=== PATIENT | female | born 1980 | race Caucasian/White ===

== ENCOUNTER 2022-05-18 12:59 | Emergency (ER) | payer OTHER, SELFPAY ==
[2022-05-18 14:30] VITALS: PULSE 69; RESP 20; TEMP 37; O2SAT 99; BMI 20.4
[2022-05-18 14:52] LABS: UTC Influenza A Antigen Negative (Negative)
[2022-05-18 14:53] LABS: UTC Influenza B Antigen Negative (Negative)
--- NOTE | 2022-05-18 14:59 | EXP.UTC ---
Discharge Plan Disposition Patient Disposition: Home, Self-Care Condition: Good Prescriptions Prescriptions: New benzonatate 100 mg capsule 100 mg PO TID PRN (Reason: cough) Qty: 15 0RF prednisone 10 mg tablet 10 mg PO BID 5 Days Qty: 10 0RF azithromycin [Zithromax Z-Abhishek] 250 mg tablet See Rx Instructions .ROUTE .COMPLEX 5 Days Qty: 6 0RF Rx Instructions: For 250 mg dose pack: take 500 mg today (day 1), then 250 mg for 4 days (days 2-5) albuterol sulfate [Proventil HFA] 90 mcg/actuation HFA aerosol inhaler 1 inh inhalation Q6H PRN (Reason: shortness of breath or wheezing) Qty: 8.5 0RF No Action sertraline 25 mg tablet 25 mg PO DAILY Label Comments: TAKE 1 TABLET 1 TIME EACH DAY Referrals Follow up/Referrals: Kary Davis APRN [Primary Care Provider] - See instructions Activity Restrictions/Add. Instructions Additional Instructions/Restrictions: Start antibiotic today. Be sure to complete entire prescription even if feeling better Monitor temp. Tylenol every 4 hours as needed and / or ibuprofen every 6 hours as needed ( As long as your primary care physician has told you that it ok to take both. For fever/aches/pains ER if no less than 101 despite Tylenol or Motrin Humidifier/vaporizer or hot steamy shower Inhaler every 4-6 hours as needed like we discussed. If unsure how to use it, ask pharmacist to demonstrate how. Should help open airways and improve cough, wheezing, and shortness of breath *Tessalon Perles will not cause drowsiness but use at bedtime to help stop cough so that you may get some rest. *Start steroid today. Helps with inflammation therefore, cough and wheezing. Follow directions on the package. Reviewed side effects. Patient reports taking them before. Follow up IMMEDIATELY for new or worsening of symptoms OR no noticeable improvement over the next 48-72 hours. 911 immediately for any life threatening symptoms such as chest pain or difficulty breathing Clinical Impressions Clinical Impression: Sinusitis, Bronchitis Instructions Patient Instructions: DI for Sinusitis, Sinusitis Discharge ED [place]: [place] [facility] [place] General Stated complaint: Drainage, cough, fever, sore throat, WRAY Mode of Arrival: Ambulatory Source of Information: Patient Limitations: No Limitations Time Seen by Provider: 05/18/22 14:59 Description of Symptoms (Recalled from Triage Doc. by RN): PATIENT C/O COUGH, HEADACHE, RUNNY NOSE, AND CHEST CONGESTION SINCE YESTERDAY HEENT Symptoms (Recalled from RN notes): Yes Resp Symptoms (Recalled from RN notes): Yes Skin Symptoms (Recalled from RN notes): No MS Symptoms (Recalled from RN notes): No Functional Status (Recalled from RN notes): WNL History of Present Illness Provider Complaint: Patient states that she has been having sinus congestion and pressure for over a week but for the last couple of days she has been feeling like she is having chest congestion cough and feeling achy all over state that today she was still not feeling well so she came in to get checked out Related Data Home Medications Medication Instructions Recorded Confirmed sertraline 25 mg tablet 25 mg PO DAILY Depression 05/18/22 05/18/22 Previous Rx's Medication Instructions Recorded albuterol sulfate 90 mcg/actuation 1 inh inhalation Q6H PRN shortness 05/18/22 aerosol inhaler (Proventil HFA) of breath or wheezing #8.5 grams azithromycin 250 mg tablet See Rx Instructions PO .COMPLEX 5 05/18/22 (Zithromax Z-Abhishek) days #6 tabs benzonatate 100 mg capsule 100 mg PO TID PRN cough #15 caps 05/18/22 prednisone 10 mg tablet 10 mg PO BID 5 days #10 tabs 05/18/22 Allergies Allergy/AdvReac Type Severity Reaction Status Date / Time Penicillins Allergy Unknown Verified 05/18/22 14:50 Worker's Comp Is this a Worker's Comp case?: No PFSH PFS Medical History (Updated 05/18/22 @ 15:04
[2022-05-18 15:06] VITALS: BP 0/0; PULSE 69; RESP 20; TEMP 37; O2SAT 99
== END 2022-05-18 15:15 | disposition home or self-care (01) ==
PROVIDERS: Emergency Provider Nurse Practitioner; PCP Nurse Practitioner
DX: J40 Bronchitis, not specified as acute or chronic (principal); J32.9 Chronic sinusitis, unspecified
CPT/HCPCS: 87804; 99212; C9803; G0463; U0003; U0005

== ENCOUNTER 2022-12-22 13:05 | Emergency (ER) | payer OTHER, SELFPAY ==
[2022-12-22] VITALS (12 sets, daily range): BP systolic 63–124; BP diastolic 40–85; PULSE 63–84; RESP 17–18; TEMP 36.8; O2SAT 94–100; BMI 23.6
--- NOTE | 2022-12-22 13:52 | CT_ITS ---
FINAL REPORT TECHNIQUE: Axial images through the abdomen and pelvis were performed without contrast. This study was performed with techniques to keep radiation doses as low as reasonably achievable, (ALARA). Individualized dose reduction techniques using automated exposure control or adjustment of mA and/or kV according to the patient's size were employed. CLINICAL HISTORY: concern for L stone. LLQ painand L flank pain COMPARISON: None FINDINGS: Abdomen: A few small bullae are noted in the lower lung reed. The liver parenchyma is homogeneous. The gallbladder is present. The spleen, pancreas, adrenals and kidneys are unremarkable. Pelvis: The urinary bladder is unremarkable. The appendix is not visualied. There is a 3.8 x 3.5 left adnexal low-density present that has an appearance most compatible with an adnexal cyst of the ovary. There is mucosal edema present in the proximal sigmoid colon with pericolonic inflammatory change. No free fluid is identified in the pelvis. IMPRESSION: Mucosal edema present in the proximal sigmoid colon with pericolonic inflammatory change. The appearance is most suggestive of either an acute infectious or inflammatory process. 3.8 x 3.5 left adnexal low-density, has an appearance most compatible with an ovarian cyst, most likely physiologic. Reviewed, Interpreted and Dictated by Young Mireles MD Transcribed by Charmaine Goodwin Authenticated and [facility]
--- NOTE | 2022-12-22 14:05 | PC.NURSE ---
Bladder scan <10mL
[2022-12-22 14:26] LABS: Coronavirus 19, PCR Not Detected (NotDetected); Influenza A, PCR Not Detected (NotDetected); Influenza B, PCR Not Detected (NotDetected); Microscopic, Urine URINE MICROSCOPIC (MICROSCOPIC)
--- NOTE | 2022-12-22 14:28 | HMH.EDGENADL ---
Discharge Plan Disposition Patient Disposition: Home, Self-Care Condition: Good Chief Complaint: Urogenital-Female Prescriptions Prescriptions: No Action trazodone 50 mg tablet 50 mg PO HS Label Comments: TAKE 1 TABLET 1 TIME EACH DAY sertraline 25 mg tablet 25 mg PO DAILY Label Comments: TAKE 1 TABLET 1 TIME EACH DAY Referrals Follow up/Referrals: Kary Davis APRN [Primary Care Provider] - See instructions Activity Restrictions/Add. Instructions Additional Instructions/Restrictions: Take Tylenol 1000 mg every 6 hours (4 times daily) and ibuprofen 400 mg every 6 hours (4 times daily) as needed with food and water to prevent GI upset and kidney damage. Follow-up with your family doctor or return to the emergency department if pain continues to worsen. Clinical Impressions Clinical Impression: Enteritis Instructions Patient Instructions: DI for Urinary Tract Infection (UTI), DI for Urinary Tract Infection in Children Discharge ED Provider: Toni Cordoba General Adult HPI General Chief complaint: Urogenital-Female Stated complaint: ABD PAIN Time Seen by Provider: 12/22/22 13:11 Mode of Arrival: EMS Source of Information: Patient and EMS Limitations: No Limitations Description of Symptoms (Recalled from ER Triage Doc. by RN): 42 F presents from home via EMS for abdominal pain. Patient reports chronic abdominal issues; however, it's been 3 days since her last BM. She urinated earlier today and felt pain. Patient denies fever, chills, hematuria. 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 History of Present Illness HPI narrative: Is a 42-year-old female with history of , recovering addict presenting with abdominal pain. Patient states that she started having abdominal pain 4 days prior to arrival. Did not think anything of it, has been hurting on and off the last couple of days. Mostly when she tries to pee. Had difficulty urinating 1 day prior to arrival without dysuria, hematuria, frequency, or urgency. Had cramping, left lower quadrant pain today, acutely when she was at work and it was so bad it caused her to collapse to the ground. No loss of continence or consciousness. Patient has not had fevers, chills, but has had nausea without vomiting. No overlying skin changes. No history of pancreatitis, nephrolithiasis, obstructions, or any other intra-abdominal pathology. Still has gallbladder and appendix. Related Data Home Medications Medication Instructions Recorded Confirmed sertraline 25 mg tablet 25 mg PO DAILY Mood 12/22/22 12/22/22 trazodone 50 mg tablet 50 mg PO HS Mood 12/22/22 12/22/22 Allergies Allergy/AdvReac Type Severity Reaction Status Date / Time Penicillins Allergy Unknown Verified 05/18/22 14:50 [facility] Disclaimer: The information contained in this section may have been updated after the patient was seen, as this information can be updated by other users. Medical History (Updated 12/22/22 @ 16:07 by Toni Cordoba MD) Depression Surgical History History of section History of tubal ligation Social History Smoking Status: Former smoker alcohol intake: never current occupational status: other Travel in the last 8 weeks: None ROS Obtained: Yes All systems reviewed & no additional complaints except as documented Physical Exam General General appearance: alert and in no apparent distress Respiratory Respiratory exam: Present normal lung sounds bilaterally; Absent respiratory distress Cardiovascular Cardiovascular exam: Present regular rate and normal rhythm Abdominal Exam Abdominal exam: Present soft, tenderness and guarding; Absent distention, rebound or rigidity Abdominal tenderness: Present LLQ Back Exam Back exam: Present CVA tenderness (L) Neurological Exam Neurological exam: Present
[2022-12-22 14:40] LABS: Chloride 104 mmol/L (98-107); Sodium 139 mmol/L (136-145)
[2022-12-22 14:41] LABS: Potassium 3.7 mmoL/L (3.5-5.1)
[2022-12-22 14:42] LABS: Appearance,Urine SL CLOUDY (Clear); Blood, Urine 3+ (Negative); Color,Urine YELLOW (Yellow); Glucose,Urine (UA) Negative (Negative); Ketones,Urine 1+ (Negative); Leukocyte Esterase,Urine Negative (Negative); Nitrate,Urine Negative (Negative); Protein,Urine 2+ (Negative); Specific Gravity, Urine >= 1.030 (1.005-1.030)
[2022-12-22 14:43] LABS: Alanine Aminotransferase 21 U/L (12-78); Alkaline Phosphatase 112 U/L (38-126); Anion Gap 14.7 mEq/L (5-15); Aspartate Amino Transferase 29 U/L (14-36); Bilirubin,Total 0.8 mg/dl (0.2-1.3); Blood Urea Nitrogen 17 mg/dl (7-17); Carbon Dioxide 24 mmol/L (22.0-30.0); Creatinine Clearance Estimated 92 mL/min (50-200); Estimated Glomerular Filt Rate 91 ml/min (>60); GFR (African American) 110 ML/MIN (>60); Lactic Acid 0.8 mmol/L (0.7-2.1); Lipase 54 U/L (23-300)
[2022-12-22 14:44] LABS: Albumin Level 4.4 g/dl (3.5-5.0); Albumin/Globulin Ratio 1.1 (1.1-1.8); Calcium 9.3 mg/dl (8.4-10.2); Globulin 3.9 g/dL (1.3-3.2); Glucose 82 mg/dl (74-100); Total Protein,Serum 8.3 g/dl (6.3-8.2)
[2022-12-22 14:47] LABS: Urine Pregnancy, HCG Qual. Negative (Negative)
[2022-12-22 14:48] LABS: Bilirubin,Urine 2+ (Negative)
[2022-12-22 14:50] LABS: Basophils # 0.1 K/mm3 (0-0.2); Basophils % 0.5 % (0.1-2.0); Eosinophils # 0.2 K/mm3 (0.0-0.4); Eosinophils % 1.5 % (0.1-12.0); Hemoglobin 12.2 g/dL (12.2-16.2); Lymphocytes # 1.2 K/mm3 (0.7-4.5); Lymphocytes % 11.7 % (10-50); Mean Corpuscular HGB Conc 32.2 g/dL (31.8-35.4); Mean Corpuscular Hemoglobin 25.8 pg (27.0-31.2); Mean Corpuscular Volume 80.2 fl (81-99); Monocytes # 0.8 K/mm3 (0.1-1.0); Monocytes % 7.7 % (1.7-9.3); Neutrophils % 78.6 % (37.0-80.0); Platelet Count 384 K/mm3 (142-424); Red Blood Count 4.74 M/mm3 (4.20-5.40); Red Cell Distribution Width 14.6 % (11.5-17.5); White Blood Count 10.1 K/mm3 (4.8-10.8)
--- NOTE | 2022-12-22 14:53 | PC.NURSE ---
CHECKED ON PT NOTHING NEEDED AT THIS TIME, FAMILY AT BS
[2022-12-22 15:14] LABS: Bacteria,Urine Trace /lpf; WBC,Urine Occasional #/hpf (0-3)
== END 2022-12-22 16:22 | disposition home or self-care (01) ==
PROVIDERS: Emergency Provider Emergency Medicine; PCP Nurse Practitioner
DX: K52.9 Noninfective gastroenteritis and colitis, unspecified (principal); R10.32 Left lower quadrant pain; F32.A Depression, unspecified; Z87.891 Personal history of nicotine dependence
CPT/HCPCS: 74176; 80053; 81001; 81025; 83036; 83605; 83690; 85025; 87086; 87636; 96360; 99284; C9803; U0003; U0005

== ENCOUNTER 2025-03-30 13:53 | Observation (INO) | payer MEDICAID, SELFPAY ==
[2025-03-30] VITALS (9 sets, daily range): BP systolic 107–129; BP diastolic 68–82; PULSE 67–94; RESP 14–18; TEMP 36.6–36.9; O2SAT 91–100; BMI 33.0; BMI 24.0
[2025-03-30 14:15] LABS: Hematocrit 41.1 % (37.0-47.0); Hemoglobin 13.4 g/dL (12.2-16.2); Immature Granulocytes % 0.3 %; Mean Corpuscular HGB Conc 32.6 g/dL (31.8-35.4); Mean Corpuscular Hemoglobin 27.0 pg (27.0-31.2); Mean Corpuscular Volume 82.7 fl (81-99); Nucleated Red Blood Cells % 0 %; Platelet Count 333 K/mm3 (142-424); Red Blood Count 4.97 M/mm3 (4.20-5.40); Red Cell Distribution Width-SD 41.0 fL; White Blood Count 14.7 K/mm3 (4.8-10.8)
[2025-03-30 14:18] LABS: Microscopic, Urine URINE MICROSCOPIC (MICROSCOPIC)
[2025-03-30 14:28] LABS: Bilirubin,Urine Negative (Negative); Color,Urine YELLOW (Yellow); Glucose,Urine (UA) Negative (Negative); Ketones,Urine Negative (Negative); Leukocyte Esterase,Urine Negative (Negative); PH,Urine 5.5 (5.0-8.5); Protein,Urine Negative (Negative); Specific Gravity, Urine 1.015 (1.005-1.030); Urobilinogen,Urine 0.2 EU/dl (0.2)
[2025-03-30 14:29] LABS: Urine Pregnancy, HCG Qual. Negative (Negative)
[2025-03-30 14:34] LABS: Alanine Aminotransferase 18 U/L (12-78); Albumin Level 4.5 g/dl (3.5-5.0); Albumin/Globulin Ratio 1.3 (1.1-1.8); Alkaline Phosphatase 95 U/L (38-126); Anion Gap 13.8 mEq/L (5-15); Aspartate Amino Transferase 21 U/L (14-36); Bilirubin,Total 0.7 mg/dl (0.2-1.3); Blood Urea Nitrogen 7 mg/dl (7-17); Calcium 9.6 mg/dl (8.4-10.2); Carbon Dioxide 23 mmol/L (22.0-30.0); Chloride 104 mmol/L (98-107); Creatinine Clearance Estimated 176 mL/min (50-200); Creatinine,Serum 0.50 mg/dl (0.52-1.04); Estimated Glomerular Filt Rate 133 ml/min (>60); GFR (African American) 161 ML/MIN (>60); Globulin 3.6 g/dL (1.3-3.2); Glucose 100 mg/dl (74-100); Lipase 46 U/L (23-300); Potassium 3.8 mmoL/L (3.5-5.1); Sodium 137 mmol/L (136-145); Total Protein,Serum 8.1 g/dl (6.3-8.2)
[2025-03-30 14:39] LABS: RBC Morphology Normal; Total Cells Counted 100
[2025-03-30 14:43] LABS: Bacteria,Urine 1+ /lpf
--- NOTE | 2025-03-30 15:07 | ED_ITS ---
Discharge Plan Disposition Chief Complaint: Abdominal Pain Prescriptions Prescriptions: No Action trazodone 50 mg tablet 50 mg PO HS Patient Comments: TAKE 1 TABLET 1 TIME EACH DAY sertraline 25 mg tablet 25 mg PO DAILY Patient Comments: TAKE 1 TABLET 1 TIME EACH DAY Referrals Follow up/Referrals: aKry Davis APRN [Primary Care Provider, Medical] - See instructions Instructions Patient Instructions: DI for Acute Abdominal Pain Print Language Print Language: Romanian Discharge ED Provider: Lobo Miramontes General Adult HPI General Chief complaint: Abdominal Pain Stated complaint: lower abd pain, lower back pain Time Seen by Provider: 03/30/25 15:07 Mode of Arrival: Wheelchair Source of Information: Patient Description of Symptoms (Recalled from ER Triage Doc. by RN): pt presents to ED c/o lower abdominal pain that started yesterday evening. pt states pain is throughout entire lower abdomen and radiates to low back. denies burning with urination. pt reports she believes she is currently going through menopause. pt reports 1 episode of vomiting today and diarrhea yesterday. History of Present Illness HPI narrative: Ratna Metzger with a history of , tubal ligation who presents to the emergency department for complaints of abdominal pain, nausea, vomiting and diarrhea. Additionally, she nonbloody diarrhea as well as nonbloody. She has not been able to keep any food or liquid down. She states that today, she is having lower abdominal pain associate with it. She denies any dysuria, hematuria. She states the pain radiates to both sides of her lower back. She denies any fevers. They note that her daughter had similar illness recently and was seen in the emergency department that time and told she had a stomach virus. She denies any chest pain or shortness of breath Related Data Home Medications ?Medication ?Instructions ?Recorded ?Confirmed sertraline 25 mg tablet 25 mg PO DAILY Mood 12/22/22 12/22/22 trazodone 50 mg tablet 50 mg PO HS Mood 12/22/22 Allergies Allergy/AdvReac Type Severity Reaction Status Date / Time Penicillins Allergy Unknown Verified 05/18/22 14:50 [facility] Disclaimer: The information contained in this section may have been updated after the patient was seen, as this information can be updated by other users. Medical History (Updated 12/22/22 @ 16:07 by Toni Cordoba MD) Depression Surgical History History of section History of tubal ligation Social History Smoking Status: Former smoker alcohol intake: never current occupational status: other Travel in the last 8 weeks?: None Have you lived/traveled outside [place] in past 30 days?: No Contact w/someone who lives/traveled outside US past 30 days?: No Exposure to someone with infectious disease in past 14 days?: No Do you have a fever (greater than 100.4 F or 38 C)?: No Have you tested positive for COVID-19?: No Exposed to someone with COVID-19 in past 14 days?: No Do you have a sore throat?: No Do you have a cough?: No Do you have any weakness?: No Do you have any diarrhea?: No Are you experiencing any unusual bleeding?: No Do you have any muscle aches/pain?: No Do you have any abdominal pain?: No Are you experiencing loss of taste or smell?: No ROS Obtained: Yes Systems reviewed as appropriate & no additional complaints except as documented Physical Exam General General appearance: alert and in no apparent distress Head Head exam: atraumatic Eye Eye exam: Present normal appearance ENT ENT exam: Present normal external ear exam Neck Neck exam: Present full ROM Chest Chest inspection: Present symmetric chest wall rise Respiratory Respiratory exam: Present normal lung sounds bilaterally; Absent respiratory distress, wheezes or stridor Cardiovascular Cardiovascular exam: Present regular rate and normal rhythm Abdominal Exam Abdominal exam: Present soft, tenderness (Diffuse with guarding but no peritonitis), guarding, obturator sign and tenderness at McBurney's Point; Absent distention, rigidity or heel tap sign Extremities Exam Extremities exam: Present normal inspection Back Exam Back exam: Present normal inspection Neurological Exam Neurological exam: Present alert and oriented X3 Psychiatric Psychiatric exam: Present normal affect Skin Skin exam: Present warm and dry Medical Decision Making Medical Records Screening: Per USPSTF and CDC recommendations, given the prevalence of disease in our region, it is our hospital?s policy to screen for HIV and viral Hepatitis for all patients aged 18 and over and those with ongoing risk factors. Santy Inquiry Pt receiving controlled substance: No Vital Signs: 03/30/25 14:00 Temperature 98.4 F Temperature Source Oral Pulse Rate [Right Radial] 94 H Respiratory Rate 18 Blood Pressure [Right Arm] 123/82 Blood Pressure Mean [Right Arm] 95 Blood Pressure Source [Right Arm] Automatic Cuff Blood Pressure Position [Right Arm] Sitting 02 Sat by Pulse Oximetry 100 Oxygen Delivery Method Room Air Lab Data Lab Results 03/30/25 14:06: WBC 14.7 H, RBC 4.97, Hgb 13.4, Hct 41.1, MCV 82.7, MCH 27.0, MCHC 32.6, RDW 13.7, Plt Count 333, MPV 9.5, Neut % (Auto) 76.6, Lymph % (Auto) 11.8, [place] % (Auto) 10.5 H, Eos % (Auto) 0.5, Baso % (Auto) 0.3, Neut # (Auto) 11.3 H, Lymph # (Auto) 1.7, [place] # (Auto) 1.6 H, Eos # (Auto) 0.1, Baso # (Auto) 0.1, Total Counted 100, Neutrophils % (Manual) 70, Band Neutrophils % 1.0, Lymphocytes % (Manual) 20, Monocytes % (Manual) 9, Platelet Estimate Normal, RBC Morphology Normal, Sodium 137, Potassium 3.8, Chloride 104, Carbon Dioxide 23, Anion Gap 13.8, BUN 7, Creatinine 0.50 L, Estimated Creat Clear 176, Estimated GFR 133, Est GFR ( Amer) 161, Glucose 100, Calcium 9.6, Total Bilirubin 0.7, AST 21, ALT 18, Alkaline Phosphatase 95, C-Reactive Protein 77.7 H, Total Protein 8.1, Albumin 4.5, Globulin 3.6 H, Albumin/Globulin Ratio 1.3, Lipase 46 03/30/25 14:14: Urine Color Yellow, Urine Appearance Clear, Urine pH 5.5, Ur Specific [place] 1.015, Urine Protein Negative, Urine Glucose (UA) Negative, Urine Ketones Negative, Urine Blood 3+ A, Urine Nitrate Negative, Urine Bilirubin Negative, Urine Urobilinogen 0.2, Ur Leukocyte Esterase Negative, Urine RBC 3-5, Urine WBC None, Ur Squamous Epith Cells 3-5, Urine Bacteria 1+, Urine HCG, Qual Negative 03/30/25 14:06 03/30/25 14:06 Orders (Tests/Meds): ED MEDICATIONS Generic Name Dose Route Start Last Admin Trade Name Freq PRN Reason Stop Dose Admin Piperacillin Sod/Tazobactam 100 mls @ 200 mls/hr 03/30/25 17:15 Sod 4.5 gm/ Sodium Chloride IV 04/09/25 17:14 Q12H CYN Discontinued Medications Generic Name Dose Route Start Last Admin Trade Name Freq PRN Reason Stop Dose Admin Lactated Ringer's 1,000 mls @ 999 mls/hr 03/30/25 15:12 03/30/25 15:24 Lactated Ringer's 1000 Ml Bag IV 03/30/25 16:12 999 mls/hr .Q1H1M ONE Administration Iopamidol 75 ml 03/30/25 15:43 03/30/25 15:45 Iopamidol-370 (76%);100ml Bottle IV 03/30/25 15:44 75 ml ONCE ONE Administration Ketorolac Tromethamine 15 mg 03/30/25 15:12 03/30/25 15:23 Ketorolac 15mg/Ml Vial IV 03/30/25 15:13 15 mg ONCE ONE Administration Morphine Sulfate 2 mg 03/30/25 17:11 Morphine 2mg/Ml Syringe IV 03/30/25 17:12 ONCE ONE Ondansetron HCl 4 mg 03/30/25 15:12 03/30/25 15:23 Ondansetron 4mg/2ml Vial IV 03/30/25 15:13 4 mg ONCE ONE Administration Sodium Chloride 10 ml 03/30/25 15:43 03/30/25 15:45 Sodium Chloride 0.9% 10ml Syr (Rad Only) IV 03/30/25 15:44 10 ml ONCE ONE Administration ORDERS Category Date Time Status CT abdomen pelvis w con Stat Cat Scan 03/30/25 15:12 Completed CRP [C-Reactive Protein] Stat Lab 03/30/25 14:06 Completed Complete Blood Count Auto Diff Stat Lab 03/30/25 14:06 Completed Comprehensive Metabolic Panel Stat Lab 03/30/25 14:06 Completed Lipase Stat Lab 03/30/25 14:06 Completed Urinalysis and Microscopic Stat Lab 03/30/25 14:14 Completed Urine , HCG Qual. Stat Lab 03/30/25 14:14 Completed Medical Decision Narrative: Ratna Metzger with a history of , tubal ligation who presents to the emergency department for complaints of abdominal pain, nausea, vomiting and diarrhea. Additionally, she nonbloody diarrhea as well as nonbloody. She has not been able to keep any food or liquid down. She states that today, she is having lower abdominal pain associate with it. She denies any dysuria, hematuria. She states the pain radiates to both sides of her lower back. She denies any fevers. They note that her daughter had similar illness recently and was seen in the emergency department that time and told she had a stomach virus. On arrival, patient is hemodynamically styable with BP 123/82, not tachycardic, breathing comfortably on room air, afebrile, maintaining appropriate oxygen saturation on rooma air. Physical exam, stated above, revealed an overall well- appearing female status. She is diffusely tender. Abdomen nondistended and not peritonitic. Positive obturator sign. Tenderness at McBurney point negative heeltap. Differential diagnosis includes, but is not limited to: Acute appendicitis, acute cholecystitis, gastroenteritis, peptic ulcer disease, diverticulitis, UTI, among others. The most morbid conditions were considered and workup was based on these. Workup in the emergency department included: CBC with differential, CMP, urine test, urinalysis, CRP, CT abdomen pelvis with IV contrast. Patient was treated with 15 mg of IV Toradol, 1 L lactated ringer, 4 mg of IV Zofran. Workup showed leukocytosis with WBC 14.7 without neutrophilia, electrtolytes within normal limits, no JORDAN, liver enzymes and builirubin within normal limits. Lipase normal at 46. UA with 3+ blood on dipstick but only 3-5 RBC on micro, which was present in 2022 as well. No evidence of urinary tract infection. CRP is elevated at 77. Patient does note that she had gone a couple years without a period but had vaginal bleeding a few months ago. She has not had any vaginal bleeding recently. CT imaging was interpreted by me personally and significant for diverticulitis. Per radiology, there is a small amount of free fluid within the pelvis, however no identifiable cause as mentioned. No abscess or perforation is mentioned. I do not see evidence of perforation or abscess on my interpretation. Given these findings, I reassessed the patient, she overall feels better but still has tenderness in her lower abdomen. Given extensive diverticulitis in setting of small amount of free fluid with continued pain, I do feel patient would benefit from admission for IV antibiotics as well as serial abdominal exams and surgical consultation if indicated. Will start patient on IV Zosyn at this time and patient denies ever having a reaction to penicillins in the past. I discussed patient's case with Dr. Reyna Critical Care Critical Care Time Critical Care Time: No
--- NOTE | 2025-03-30 15:12 | CT_ITS ---
FINAL REPORT TECHNIQUE: After the administration of oral and intravenous contrast, axial images were obtained through the abdomen and pelvis by computed tomography. The study was performed with techniques to keep radiation dose as low as reasonably achievable, (ALARA). Individual dose reduction techniques using automated exposure control or adjustment of mA and/or kV according to the patient's size were employed. CLINICAL HISTORY: lower abdominal pain, N/V/D COMPARISON: 12/22/2022 FINDINGS: Abdomen: There are chronic changes in the lung bases. The liver parenchyma is homogeneous. The gallbladder is present. The spleen, pancreas, adrenals and kidneys appear unremarkable. The aorta is normal in caliber. There is no free fluid or adenopathy. Pelvis: The appendix is unremarkable. There is extensive mucosal thickening throughout the mid sigmoid colon. Extensive pericolonic inflammatory reaction is seen. There is a small amount of free fluid in the pelvis which is new since the previous exam with a mean attenuation value of 14 Hounsfield units. The urinary bladder is unremarkable. Cyst in the left ovary is again identified but smaller than previous now measuring 2.5 cm in diameter. IMPRESSION: Extensive changes of acute diverticulitis with new pelvic free fluid. Reviewed, Interpreted and Dictated by Young Mireles MD Transcribed by Sammie Wu Authenticated and [facility]
[2025-03-30] MEDS: ONDANSETRON 4MG/2ML VIAL 4 MG IV (15:23)
[2025-03-30] MEDS: KETOROLAC 15MG/ML VIAL 15 MG IV (15:23)
[2025-03-30] MEDS: LACTATED RINGERS 1000ML 1,000 ML 999 ML IV (15:24)
[2025-03-30] MEDS: IOPAMIDOL-370 (76%);100ML BOTTLE 75 ML IV (15:45)
[2025-03-30] MEDS: SODIUM CHLORIDE 0.9% 10ML SYR (RAD ONLY) 10 ML IV (15:45)
[2025-03-30 16:03] LABS: C-Reactive Protein 77.7 mg/L (0-4)
--- NOTE | 2025-03-30 17:56 | PC.NURSE ---
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
--- NOTE | 2025-03-30 18:20 | EXP.HP ---
History of Present Illness *Admission Date: 03/30/25 *Reason for visit:: Abdominal pain *History of present illness: Wayne Metzger is a 44-year-old female with a medical history significant for chronic tobacco smoker presents with progressive abdominal pain. Patient states her abdominal pain began yesterday afternoon and a lower abdomen and wrapped around bilaterally and into her back. This was preceded by a day of diarrhea, but no diarrhea since. She states abdominal pain kept her up all night, and worsened this morning after which her significant other urged her to come to the ER. She denies fever/chills, pain with eating, chest pain, shortness of breath, upper abdominal pain. Denies recent changes in diet or medications. Denies history of constipation. Has not had a colonoscopy. Workup in the ED significant for WBC 14.7, CRP 77.7, CT abdomen/pelvis showing extensive acute diverticulitis throughout mid sigmoid colon, extensive pericolonic inflammatory reaction and some free fluid in the pelvis. No signs of gross perforation or abscess or peritoneal signs. Vital signs stable. Patient was given Toradol 15 mg, 1 L LR, IV morphine 2 mg, and started on IV Zosyn. Patient stated she felt better, but given extensive nature of diverticulitis and pelvic free fluid, ED provider discussed case with me and I decided to admit patient for acute diverticulitis. [facility] Disclaimer: The information contained in this section may have been updated after the patient was seen, as this information can be updated by other users. Medical History (Updated 03/30/25 @ 23:34 by David Reyna MD) Depression Surgical History History of section History of tubal ligation Family History (Updated 03/30/25 @ 19:43 by Brianna Walters RN) Other Diabetes Social History (Updated 03/30/25 @ 19:44 by Brianna Walters RN) Smoking Status: Current every day smoker alcohol intake: never current occupational status: unemployed and other Travel in the last 8 weeks?: Inside the [place] Have you lived/traveled outside US in past 30 days?: No Contact w/someone who lives/traveled outside US past 30 days?: No Exposure to someone with infectious disease in past 14 days?: No Do you have a fever (greater than 100.4 F or 38 C)?: No Have you tested positive for COVID-19?: No Exposed to someone with COVID-19 in past 14 days?: No Do you have a sore throat?: No Do you have a cough?: No Do you have any weakness?: No Do you have any diarrhea?: No Are you experiencing any unusual bleeding?: No Do you have any muscle aches/pain?: No Do you have any abdominal pain?: No Are you experiencing loss of taste or smell?: No Meds Home Medications and Allergies New Prescriptions to Start Prescriptions: Allergies Allergy/AdvReac Type Severity Reaction Status Date / Time No Known Allergies Allergy Verified 03/30/25 20:41 Exam Data for Last 24 hours Vital signs and Labs for Last 24 Hours: Temp Pulse Resp BP Pulse Ox O2 Del Method 98.4 F 94 H 18 123/82 100 Room Air 03/30/25 14:00 03/30/25 14:00 03/30/25 14:00 03/30/25 14:00 03/30/25 14:00 03/30/25 14:00 Laboratory Results - last 24 hr 03/30/25 14:06: WBC 14.7 H, RBC 4.97, Hgb 13.4, Hct 41.1, MCV 82.7, MCH 27.0, MCHC 32.6, RDW 13.7, Plt Count 333, MPV 9.5, Neut % (Auto) 76.6, Lymph % (Auto) 11.8, [place] % (Auto) 10.5 H, Eos % (Auto) 0.5, Baso % (Auto) 0.3, Neut # (Auto) 11.3 H, Lymph # (Auto) 1.7, [place] # (Auto) 1.6 H, Eos # (Auto) 0.1, Baso # (Auto) 0.1, Total Counted 100, Neutrophils % (Manual) 70, Band Neutrophils % 1.0, Lymphocytes % (Manual) 20, Monocytes % (Manual) 9, Platelet Estimate Normal, RBC Morphology Normal, Sodium 137, Potassium 3.8, Chloride 104, Carbon Dioxide 23, Anion Gap 13.8, BUN 7, Creatinine 0.50 L, Estimated Creat Clear 176, Estimated GFR 133, Est GFR ( Amer) 161, Glucose 100, Calcium 9.6, Total Bilirubin 0.7, AST 21, ALT 18, Alkaline Phosphatase 95, C-Reactive Protein 77.7 H, Total Protein 8.1, Albumin 4.5, Globulin 3.6 H, Albumin/Globulin Ratio 1.3, Lipase 46 03/30/25 14:14: Urine Color Yellow, Urine Appearance Clear, Urine pH 5.5, Ur Specific [place] 1.015, Urine Protein Negative, Urine Glucose (UA) Negative, Urine Ketones Negative, Urine Blood 3+ A, Urine Nitrate Negative, Urine Bilirubin Negative, Urine Urobilinogen 0.2, Ur Leukocyte Esterase Negative, Urine RBC 3-5, Urine WBC None, Ur Squamous Epith Cells 3-5, Urine Bacteria 1+, Urine HCG, Qual Negative I & O for Last 24 hours: Intake & Output 03/27/25 03/28/25 03/29/25 03/30/25 23:59 23:59 23:59 23:59 Weight 79.379 kg Constitutional Constitutional: no acute distress *Routine HEENT Exam Head: Present normocephalic Eye: Present EOMI and PERRL ENT: Present mucous membranes moist *Routine Neck Exam Neck: Present supple; Absent lymphadenopathy *Routine Respiratory Exam Respiratory: Present CTA bilaterally *Routine Cardiovascular Exam Cardiovascular: Present RRR *Routine Abdominal Exam Abdominal: Present soft, normoactive bowel sounds and tenderness Comments: Mild tenderness to palpation in the lower abdomen. No peritoneal signs. *Routine Rectal Exam Rectal:: deferred *Routine Genitalia Exam Genitalia:: deferred *Routine Extremities Exam Extremities: Absent cyanosis, clubbing or edema *Routine Skin Exam Skin: Present warm; Absent rash *Routine Neurological Exam Neurological: Present alert and oriented X3 Assessment and Plan *Assessment and plan (1) Diverticulitis: Status: Acute Category: Medical Code(s): K57.92 - Diverticulitis of intestine, part unspecified, without perforation or abscess without bleeding (2) Tobacco smoker within last 12 months: Status: Acute Category: Social Hx Code(s): F17.200 - Nicotine dependence, unspecified, uncomplicated (3) Hematuria: Status: Acute Category: Medical Code(s): R31.9 - Hematuria, unspecified Plan Wayne Metzger is a 44-year-old female with a medical history significant for chronic tobacco smoker presents with progressive abdominal pain. Patient states her abdominal pain began yesterday afternoon and a lower abdomen and wrapped around bilaterally and into her back. This was preceded by a day of diarrhea, but no diarrhea since. She states abdominal pain kept her up all night, and worsened this morning after which her significant other urged her to come to the ER. She denies fever/chills, pain with eating, chest pain, shortness of breath, upper abdominal pain. Denies recent changes in diet or medications. Denies history of constipation. Has not had a colonoscopy. Workup in the ED significant for WBC 14.7, CRP 77.7, CT abdomen/pelvis showing extensive acute diverticulitis throughout mid sigmoid colon, extensive pericolonic inflammatory reaction and some free fluid in the pelvis. No signs of gross perforation or abscess or peritoneal signs. Vital signs stable. Patient was given Toradol 15 mg, 1 L LR, IV morphine 2 mg, and started on IV Zosyn. Patient stated she felt better, but given extensive nature of diverticulitis and pelvic free fluid, ED provider discussed case with me and I decided to admit patient for acute diverticulitis. #Acute sigmoid diverticulitis ? Presented with progressive lower abdominal pain and into her back, proceeded with 1 day of diarrhea which has resolved. ? CT abdomen/pelvis 03/30/2025 showed extensive sigmoid diverticulitis with some free fluid, therefore patient was admitted for close monitoring. ? Initial WBC 14.7 and CRP 77.7, no signs of sepsis. ? Continue IV Zosyn 3.375 g every 6 hours. Renally dose when appropriate. ? GI consulted given extensive nature of diverticulitis, pending further recommendations. Would benefit from colonoscopy in 6 weeks. ? Follow-up morning CBC, CRP. ? [place], morphine as needed for pain control. Avoid NSAIDs due to risk of perforation. ? Avoid carbonated drinks. #Chronic tobacco smoker ? Nicotine patch daily. #Hematuria ? UA shows 3+ blood, with RBCs. No WBCs, low suspicion for UTI. Patient is a chronic smoker, recommend referral to urology for further evaluation. Full code DVT prophylaxis: SCDs
--- NOTE | 2025-03-30 18:36 | PC.NURSE ---
Report given to CHRIST Sharma
[2025-03-30] MEDS: MORPHINE 2MG/ML SYRINGE 2 MG IV (18:38)
[2025-03-30] MEDS: PIPERACILLIN/TAZO 4.5 GM in 0.9 % SODIUM CHLORIDE 100 ML IV (18:40)
--- NOTE | 2025-03-30 18:57 | PC.NURSE ---
arrived by WC from ER
[2025-03-30] MEDS: NICOTINE 21MG/24HR PATCH 21 MG TD (21:39)
--- NOTE | 2025-03-30 22:12 | PC.NURSE ---
pt had desyel and zoloft on home medication List. Pt stated she had not taken in 2 years or longer. FRITZ ANDREA RN
[2025-03-31] VITALS: BP 142/77; PULSE 88; RESP 16; TEMP 37.1; O2SAT 90
[2025-03-31] MEDS: MORPHINE 4MG/ML SYRINGE 4 MG IV (00:44)
[2025-03-31] MEDS: PIPERCILLIN/TAZO 3.375 GM in 0.9 % SODIUM CHLORIDE 50 ML IV ×2 (01:11→06:09)
[2025-03-31 04:00] VITALS: BP 116/63; PULSE 87; RESP 16; TEMP 36.9; O2SAT 100; BMI 25.7
[2025-03-31 06:21] LABS: Hematocrit 36.9 % (37.0-47.0); Immature Granulocytes % 0.2 %; Mean Corpuscular HGB Conc 31.4 g/dL (31.8-35.4); Mean Corpuscular Hemoglobin 26.4 pg (27.0-31.2); Mean Corpuscular Volume 83.9 fl (81-99); Nucleated Red Blood Cells % 0 %; Platelet Count 295 K/mm3 (142-424); Red Blood Count 4.40 M/mm3 (4.20-5.40); Red Cell Distribution Width-SD 42.7 fL; White Blood Count 12.6 K/mm3 (4.8-10.8)
[2025-03-31 06:30] LABS: Alanine Aminotransferase 13 U/L (12-78); Albumin Level 3.7 g/dl (3.5-5.0); Albumin/Globulin Ratio 1.4 (1.1-1.8); Alkaline Phosphatase 75 U/L (38-126); Anion Gap 10.2 mEq/L (5-15); Aspartate Amino Transferase 18 U/L (14-36); Bilirubin,Total 0.7 mg/dl (0.2-1.3); Blood Urea Nitrogen 7 mg/dl (7-17); Calcium 8.6 mg/dl (8.4-10.2); Carbon Dioxide 26 mmol/L (22.0-30.0); Chloride 105 mmol/L (98-107); Creatinine Clearance Estimated 114 mL/min (50-200); Creatinine,Serum 0.60 mg/dl (0.52-1.04); Estimated Glomerular Filt Rate 108 ml/min (>60); GFR (African American) 130 ML/MIN (>60); Globulin 2.7 g/dL (1.3-3.2); Glucose 97 mg/dl (74-100); Magnesium 2.0 mg/dl (1.6-2.3); Potassium 4.2 mmoL/L (3.5-5.1); Sodium 137 mmol/L (136-145); Total Protein,Serum 6.4 g/dl (6.3-8.2)
[2025-03-31 06:34] LABS: Hemoglobin 11.5 g/dL (12.2-16.2)
[2025-03-31 06:37] LABS: C-Reactive Protein 113.1 mg/L (0-4)
[2025-03-31 08:00] VITALS: BP 98/52; PULSE 83; RESP 16; TEMP 36.9; O2SAT 95
--- NOTE | 2025-03-31 08:10 | EXP.GE.CONS ---
History of Present Illness *Admission Date: 03/30/25 *History of present illness: Mrs. Metzger is a 44-year-old female who was admitted with acute diverticulitis yesterday. The patient presented with lower abdominal pain that began 2 days ago and wrapped around into her back. This was preceded by some diarrhea. This did keep her up all night and she presented to the ED. She reports no fever, bloating or gassiness. She reports no hematochezia or bright red blood per rectum. Her workup in the ED showed leukocytosis with a white blood cell count of 14.7, CRP of 77.7 and CAT scan that showed extensive acute diverticulitis throughout the mid sigmoid colon with extensive pericolonic inflammatory reaction. There was no perforation or abscess. The patient was admitted and placed on Zosyn. The patient has had no prior bouts of diverticulitis. The patient reports no recent weight loss. She has had no prior colonoscopy. She reports no family history of colon cancer. [facility] Disclaimer: The information contained in this section may have been updated after the patient was seen, as this information can be updated by other users. Medical History (Updated 03/31/25 @ 08:14 by Giovani Roman II, MD) Depression Surgical History History of section History of tubal ligation Family History (Updated 03/30/25 @ 19:43 by Brianna Walters RN) Other Diabetes Social History (Updated 03/30/25 @ 19:44 by Brianna Walters RN) Smoking Status: Current every day smoker alcohol intake: never current occupational status: unemployed and other Travel in the last 8 weeks?: Inside the [place] Have you lived/traveled outside US in past 30 days?: No Contact w/someone who lives/traveled outside US past 30 days?: No Exposure to someone with infectious disease in past 14 days?: No Do you have a fever (greater than 100.4 F or 38 C)?: No Have you tested positive for COVID-19?: No Exposed to someone with COVID-19 in past 14 days?: No Do you have a sore throat?: No Do you have a cough?: No Do you have any weakness?: No Do you have any diarrhea?: No Are you experiencing any unusual bleeding?: No Do you have any muscle aches/pain?: No Do you have any abdominal pain?: No Are you experiencing loss of taste or smell?: No Meds Home Medications and Allergies Home Medications ?Medication ?Instructions ?Recorded ?Confirmed ?Type No Known Home Medications 03/31/25 03/31/25 History New Prescriptions to Start Prescriptions: Allergies Allergy/AdvReac Type Severity Reaction Status Date / Time No Known Allergies Allergy Verified 03/30/25 20:41 Exam (Inpt) Vital signs and Labs for Last 24 Hours: Temp Pulse Resp BP Pulse Ox O2 Del Method 98.5 F 87 16 116/63 100 Room Air 03/31/25 04:00 03/31/25 04:00 03/31/25 04:00 03/31/25 04:00 03/31/25 04:00 03/31/25 05:55 Laboratory Results - last 24 hr 03/30/25 14:06: WBC 14.7 H, RBC 4.97, Hgb 13.4, Hct 41.1, MCV 82.7, MCH 27.0, MCHC 32.6, RDW 13.7, Plt Count 333, MPV 9.5, Neut % (Auto) 76.6, Lymph % (Auto) 11.8, [place] % (Auto) 10.5 H, Eos % (Auto) 0.5, Baso % (Auto) 0.3, Neut # (Auto) 11.3 H, Lymph # (Auto) 1.7, [place] # (Auto) 1.6 H, Eos # (Auto) 0.1, Baso # (Auto) 0.1, Total Counted 100, Neutrophils % (Manual) 70, Band Neutrophils % 1.0, Lymphocytes % (Manual) 20, Monocytes % (Manual) 9, Platelet Estimate Normal, RBC Morphology Normal, Sodium 137, Potassium 3.8, Chloride 104, Carbon Dioxide 23, Anion Gap 13.8, BUN 7, Creatinine 0.50 L, Estimated Creat Clear 176, Estimated GFR 133, Est GFR ( Amer) 161, Glucose 100, Calcium 9.6, Total Bilirubin 0.7, AST 21, ALT 18, Alkaline Phosphatase 95, C-Reactive Protein 77.7 H, Total Protein 8.1, Albumin 4.5, Globulin 3.6 H, Albumin/Globulin Ratio 1.3, Lipase 46 03/30/25 14:14: Urine Color Yellow, Urine Appearance Clear, Urine pH 5.5, Ur Specific [place] 1.015, Urine Protein Negative, Urine Glucose (UA) Negative, Urine Ketones Negative, Urine Blood 3+ A, Urine Nitrate Negative, Urine Bilirubin Negative, Urine Urobilinogen 0.2, Ur Leukocyte Esterase Negative, Urine RBC 3-5, Urine WBC None, Ur Squamous Epith Cells 3-5, Urine Bacteria 1+, Urine HCG, Qual Negative 03/31/25 05:42: WBC 12.6 H, RBC 4.40, Hgb 11.5 L D, Hct 36.9 L, MCV 83.9, MCH 26.4 L, MCHC 31.4 L, RDW 13.7, Plt Count 295, MPV 9.7, Neut % (Auto) 69.8, Lymph % (Auto) 16.5, [place] % (Auto) 11.5 H, Eos % (Auto) 1.4, Baso % (Auto) 0.6, Neut # (Auto) 8.8 H, Lymph # (Auto) 2.1, [place] # (Auto) 1.5 H, Eos # (Auto) 0.2, Baso # (Auto) 0.1, Sodium 137, Potassium 4.2, Chloride 105, Carbon Dioxide 26, Anion Gap 10.2, BUN 7, Creatinine 0.60, Estimated Creat Clear 114, Estimated GFR 108, Est GFR ( Amer) 130, Glucose 97, Calcium 8.6, Magnesium 2.0, Total Bilirubin 0.7, AST 18, ALT 13 D, Alkaline Phosphatase 75, C-Reactive Protein 113.1 H, Total Protein 6.4, Albumin 3.7 D, Globulin 2.7, Albumin/Globulin Ratio 1.4 I & O for Labs for Last 24 Hours: Intake & Output 03/28/25 03/29/25 03/30/25 03/31/25 23:59 23:59 23:59 23:59 Intake Total 1100 / 1400 350 / 350 Output Total 150 / 150 200 / 200 Balance 950 / 1250 150 / 150 Weight 127 lb 8 oz 136 lb Comments:: Moderate tenderness in the lower abdomen without rebound or guarding, no masses Results Labs 03/31/25 05:42 03/31/25 05:42 Labs: Laboratory Results - last 24 hr 03/30/25 14:06: WBC 14.7 H, RBC 4.97, Hgb 13.4, Hct 41.1, MCV 82.7, MCH 27.0, MCHC 32.6, RDW 13.7, Plt Count 333, MPV 9.5, Neut % (Auto) 76.6, Lymph % (Auto) 11.8, [place] % (Auto) 10.5 H, Eos % (Auto) 0.5, Baso % (Auto) 0.3, Neut # (Auto) 11.3 H, Lymph # (Auto) 1.7, [place] # (Auto) 1.6 H, Eos # (Auto) 0.1, Baso # (Auto) 0.1, Total Counted 100, Neutrophils % (Manual) 70, Band Neutrophils % 1.0, Lymphocytes % (Manual) 20, Monocytes % (Manual) 9, Platelet Estimate Normal, RBC Morphology Normal, Sodium 137, Potassium 3.8, Chloride 104, Carbon Dioxide 23, Anion Gap 13.8, BUN 7, Creatinine 0.50 L, Estimated Creat Clear 176, Estimated GFR 133, Est GFR ( Amer) 161, Glucose 100, Calcium 9.6, Total Bilirubin 0.7, AST 21, ALT 18, Alkaline Phosphatase 95, C-Reactive Protein 77.7 H, Total Protein 8.1, Albumin 4.5, Globulin 3.6 H, Albumin/Globulin Ratio 1.3, Lipase 46 03/30/25 14:14: Urine Color Yellow, Urine Appearance Clear, Urine pH 5.5, Ur Specific [place] 1.015, Urine Protein Negative, Urine Glucose (UA) Negative, Urine Ketones Negative, Urine Blood 3+ A, Urine Nitrate Negative, Urine Bilirubin Negative, Urine Urobilinogen 0.2, Ur Leukocyte Esterase Negative, Urine RBC 3-5, Urine WBC None, Ur Squamous Epith Cells 3-5, Urine Bacteria 1+, Urine HCG, Qual Negative 03/31/25 05:42: WBC 12.6 H, RBC 4.40, Hgb 11.5 L D, Hct 36.9 L, MCV 83.9, MCH 26.4 L, MCHC 31.4 L, RDW 13.7, Plt Count 295, MPV 9.7, Neut % (Auto) 69.8, Lymph % (Auto) 16.5, [place] % (Auto) 11.5 H, Eos % (Auto) 1.4, Baso % (Auto) 0.6, Neut # (Auto) 8.8 H, Lymph # (Auto) 2.1, [place] # (Auto) 1.5 H, Eos # (Auto) 0.2, Baso # (Auto) 0.1, Sodium 137, Potassium 4.2, Chloride 105, Carbon Dioxide 26, Anion Gap 10.2, BUN 7, Creatinine 0.60, Estimated Creat Clear 114, Estimated GFR 108, Est GFR ( Amer) 130, Glucose 97, Calcium 8.6, Magnesium 2.0, Total Bilirubin 0.7, AST 18, ALT 13 D, Alkaline Phosphatase 75, C-Reactive Protein 113.1 H, Total Protein 6.4, Albumin 3.7 D, Globulin 2.7, Albumin/Globulin Ratio 1.4 Assessment and Plan *Assessment and plan (1) Sigmoid diverticulitis: Status: Acute Category: Medical Code(s): K57.32 - Diverticulitis of large intestine without perforation or abscess without bleeding (2) Lower abdominal pain: Status: Acute Category: Medical Code(s): R10.30 - Lower abdominal pain, unspecified Plan 1. Acute sigmoid diverticulitis without perforation or abscess. I would continue IV antibiotics today and transition to oral antibiotics (Augmentin) for 14 days as outpatient. We have discussed dietary measures. Would avoid NSAIDs. She is a smoker. She will need outpatient diagnostic colonoscopy in 8 to 12 weeks and I will have my office arrange outpatient colonoscopy.
[2025-03-31] MEDS: HYDROCODONE/APAP 5/325 MG TABLET 1 TAB PO (08:18)
[2025-03-31] MEDS: NICOTINE 21MG/24HR PATCH 21 MG TD (08:18)
--- NOTE | 2025-03-31 10:03 | P.DS_ITS ---
<Statement entered by John Soares MD - 03/31/25 14:05> Rounded on patient after nurse practitioner. Personally examined and interviewed patient. Agree with exam findings and care plan as documented. General Admission date:: 03/30/25 Discharge date: 03/31/25 HPI HPI HPI: Mrs. Metzger is a 44-year-old female who was admitted with acute diverticulitis yesterday. The patient presented with lower abdominal pain that began 2 days ago and wrapped around into her back. This was preceded by some diarrhea. This did keep her up all night and she presented to the ED. She reports no fever, b loating or gassiness. She reports no hematochezia or bright red blood per rectum. Her workup in the ED showed leukocytosis with a white blood cell count of 14.7, CRP of 77.7 and CAT scan that showed extensive acute diverticulitis throughout the mid sigmoid colon with extensive pericolonic inflammatory reaction. There was no perforation or abscess. The patient was admitted and placed on Zosyn. The patient has had no prior bouts of diverticulitis. The patient reports no recent weight loss. She has had no prior colonoscopy. She reports no family history of colon cancer. Hospital Course Hospital Course Hospital Course: Ratna Metzger is a 44-year-old female with a medical history significant for chronic tobacco smoker presented with progressive abdominal pain. Patient stated her abdominal pain began Sunday afternoon and a lower abdomen and wrapped around bilaterally and into her back. This was preceded by a day of diarrhea, but no diarrhea since. She denied fever/chills, pain with eating, chest pain, shortness of breath, upper abdominal pain. Denied recent changes in diet or medications. Denied history of constipation. Has not had a colonoscopy. Workup in the ED significant for WBC 14.7, CRP 77.7, CT abdomen/pelvis showing extensive acute diverticulitis throughout mid sigmoid colon, extensive pericolonic inflammatory reaction and some free fluid in the pelvis. No signs of gross perforation or abscess or peritoneal signs. Vital signs stable. Patient was given Toradol 15 mg, 1 L LR, IV morphine 2 mg, and started on IV Zosyn. Patient stated she felt better, but given extensive nature of diverticulitis and pelvic free fluid, ED provider discussed case with hospital medicine and decided to admit patient for acute diverticulitis. #Acute sigmoid diverticulitis ? Presented with progressive lower abdominal pain and into her back, proceeded w ith 1 day of diarrhea which has resolved. PT. rested well throughout the night and denies any pain upon exam. Pt. states she had one episode of pain last night but the pain medication helped. ? CT abdomen/pelvis 03/30/2025 showed extensive sigmoid diverticulitis with some free fluid, therefore patient was admitted for close monitoring. ? Initial WBC 14.7 and CRP 77.7, no signs of sepsis. ? Received IV Zosyn 3.375 g for total of 4 doses during admission. Patient discharged home on Augmentin 875?125 twice daily for total of 14 days of antibiotic coverage. ? GI consulted and recommended colonoscopy in 6 to 8 weeks. ? CBC improved, WBC 12.6. No electrolyte abnormalities sodium 137, potassium 4.2. BUN 7, creatinine 0.60. CRP elevated at 113. Patient should have outpatient labs at her PCP follow-up. ? Patient discharged home with [place] 5/325 mg every 4 hours as needed for abdominal pain. Avoid NSAIDs. #Chronic tobacco smoker ? Discussed smoking cessation with patient. #Hematuria ? UA shows 3+ blood, with RBCs. No WBCs, low suspicion for UTI. Patient denies dysuria, urinary frequency. Discussed patient following with urology in the outpatient setting for possible bladder scope. Total time spent on discharge 32 minutes in counseling, documentation, chart review, and direct care with patient. Exam Data for Last 24 hours Vital signs and Labs for Last 24 Hours: Temp Pulse Resp BP Pulse Ox O2 Del Method 98.5 F 83 16 98/52 L 95 Room Air 03/31/25 08:00 03/31/25 08:00 03/31/25 08:00 03/31/25 08:00 03/31/25 08:00 03/31/25 09:00 Laboratory Results - last 24 hr 03/30/25 14:06: WBC 14.7 H, RBC 4.97, Hgb 13.4, Hct 41.1, MCV 82.7, MCH 27.0, MCHC 32.6, RDW 13.7, Plt Count 333, MPV 9.5, Neut % (Auto) 76.6, Lymph % (Auto) 11.8, [place] % (Auto) 10.5 H, Eos % (Auto) 0.5, Baso % (Auto) 0.3, Neut # (Auto) 11.3 H, Lymph # (Auto) 1.7, [place] # (Auto) 1.6 H, Eos # (Auto) 0.1, Baso # (Auto) 0.1, Total Counted 100, Neutrophils % (Manual) 70, Band Neutrophils % 1.0, Lymphocytes % (Manual) 20, Monocytes % (Manual) 9, Platelet Estimate Normal, RBC Morphology Normal, Sodium 137, Potassium 3.8, Chloride 104, Carbon Dioxide 23, Anion Gap 13.8, BUN 7, Creatinine 0.50 L, Estimated Creat Clear 176, Estimated GFR 133, Est GFR ( Amer) 161, Glucose 100, Calcium 9.6, Total Bilirubin 0.7, AST 21, ALT 18, Alkaline Phosphatase 95, C-Reactive Protein 77.7 H, Total Protein 8.1, Albumin 4.5, Globulin 3.6 H, Albumin/Globulin Ratio 1.3, Lipase 46 03/30/25 14:14: Urine Color Yellow, Urine Appearance Clear, Urine pH 5.5, Ur Specific [place] 1.015, Urine Protein Negative, Urine Glucose (UA) Negative, Urine Ketones Negative, Urine Blood 3+ A, Urine Nitrate Negative, Urine Bilirubin Negative, Urine Urobilinogen 0.2, Ur Leukocyte Esterase Negative, Urine RBC 3-5, Urine WBC None, Ur Squamous Epith Cells 3-5, Urine Bacteria 1+, Urine HCG, Qual Negative 03/31/25 05:42: WBC 12.6 H, RBC 4.40, Hgb 11.5 L D, Hct 36.9 L, MCV 83.9, MCH 26.4 L, MCHC 31.4 L, RDW 13.7, Plt Count 295, MPV 9.7, Neut % (Auto) 69.8, Lymph % (Auto) 16.5, [place] % (Auto) 11.5 H, Eos % (Auto) 1.4, Baso % (Auto) 0.6, Neut # (Auto) 8.8 H, Lymph # (Auto) 2.1, [place] # (Auto) 1.5 H, Eos # (Auto) 0.2, Baso # (Auto) 0.1, Sodium 137, Potassium 4.2, Chloride 105, Carbon Dioxide 26, Anion Gap 10.2, BUN 7, Creatinine 0.60, Estimated Creat Clear 114, Estimated GFR 108, Est GFR ( Amer) 130, Glucose 97, Calcium 8.6, Magnesium 2.0, Total Bilirubin 0.7, AST 18, ALT 13 D, Alkaline Phosphatase 75, C-Reactive Protein 113.1 H, Total Protein 6.4, Albumin 3.7 D, Globulin 2.7, Albumin/Globulin Ratio 1.4 I & O for Last 24 hours: Intake & Output 03/28/25 03/29/25 03/30/25 03/31/25 23:59 23:59 23:59 23:59 Intake Total 1100 / 1400 400 / 400 Output Total 150 / 150 200 / 200 Balance 950 / 1250 200 / 200 Weight 57.833 kg 61.689 kg Constitutional Constitutional: no acute distress, average body habitus and cooperative *Routine HEENT Exam Head: Present normocephalic Eye: Present EOMI ENT: Present mucous membranes moist *Routine Neck Exam Neck: Present supple *Routine Respiratory Exam Respiratory: Present CTA bilaterally, able to speak in complete sentences and symmetric chest movement; Absent wheezes or crackles *Routine Cardiovascular Exam Cardiovascular: Present RRR; Absent murmur *Routine Abdominal Exam Abdominal: Present soft and normoactive bowel sounds; Absent tenderness, distended or guarding *Routine Extremities Exam Extremities: Present full ROM and pulses intact; Absent edema *Routine Skin Exam Skin: Present intact and dry; Absent rash *Routine Neurological Exam Neurological: Present alert and oriented X3 Results Data Completed and Pending Labs on day of discharge: Labs from last 24 hours 03/31/25 03/30/25 03/30/25 05:42 14:14 14:06 WBC 12.6 H 14.7 H RBC 4.40 4.97 Hgb 11.5 L D 13.4 Hct 36.9 L 41.1 MCV 83.9 82.7 MCH 26.4 L 27.0 MCHC 31.4 L 32.6 RDW 13.7 13.7 Plt Count 295 333 MPV 9.7 9.5 Neut % (Auto) 69.8 76.6 Lymph % (Auto) 16.5 11.8 [place] % (Auto) 11.5 H 10.5 H Eos % (Auto) 1.4 0.5 Baso % (Auto) 0.6 0.3 Neut # (Auto) 8.8 H 11.3 H Lymph # (Auto) 2.1 1.7 [place] # (Auto) 1.5 H 1.6 H Eos # (Auto) 0.2 0.1 Baso # (Auto) 0.1 0.1 Total Counted 100 Neutrophils % (Manual) 70 Band Neutrophils % 1.0 Lymphocytes % (Manual) 20 Monocytes % (Manual) 9 Platelet Estimate Normal RBC Morphology Normal Sodium 137 137 Potassium 4.2 3.8 Chloride 105 104 Carbon Dioxide 26 23 Anion Gap 10.2 13.8 BUN 7 7 Creatinine 0.60 0.50 L Estimated Creat Clear 114 176 Estimated GFR 108 133 Est GFR ( Amer) 130 161 Glucose 97 100 Calcium 8.6 9.6 Magnesium 2.0 Total Bilirubin 0.7 0.7 AST 18 21 ALT 13 D 18 Alkaline Phosphatase 75 95 C-Reactive Protein 113.1 H 77.7 H Total Protein 6.4 8.1 Albumin 3.7 D 4.5 Globulin 2.7 3.6 H Albumin/Globulin Ratio 1.4 1.3 Lipase 46 Urine Color Yellow Urine Appearance Clear Urine pH 5.5 Ur Specific [place] 1.015 Urine Protein Negative Urine Glucose (UA) Negative Urine Ketones Negative Urine Blood 3+ A Urine Nitrate Negative Urine Bilirubin Negative Urine Urobilinogen 0.2 Ur Leukocyte Esterase Negative Urine RBC 3-5 Urine WBC None Ur Squamous Epith Cells 3-5 Urine Bacteria 1+ Urine HCG, Qual Negative DS: Diagnosis Discharge Diagnosis (1) Sigmoid diverticulitis: Status: Acute Code(s): K57.32 - Diverticulitis of large intestine without perforation or abscess witho ut bleeding (2) Lower abdominal pain: Status: Acute Code(s): R10.30 - Lower abdominal pain, unspecified (3) Hematuria: Status: Acute Code(s): R31.9 - Hematuria, unspecified (4) Tobacco smoker within last 12 months: Status: Acute Code(s): F17.200 - Nicotine dependence, unspecified, uncomplicated Meds Home Medications and Allergies Home Medications ?Medication ?Instructions ?Recorded ?Confirmed ?Type amoxicillin 875 mg-potassium 1 tab PO BID #26 tabs Rx clavulanate 125 mg tablet hydrocodone 5 mg-acetaminophen 325 1 tab PO Q4HP PRN M oderate Pain 03/31/25 Rx mg tablet (4-6) #9 tabs New Prescriptions to Start Prescriptions: hydrocodone-acetaminophen Leigh Ann Brown amoxicillin-pot clavulanate Leigh Ann Brown Allergies Allergy/AdvReac Type Severity Reaction Status Date / Time No Known Allergies Allergy Verified 03/30/25 20:41 Discharge Plan Disposition Patient Disposition: Home, Self-Care Condition: Fair Follow up Plan Follow up with: Giovani Roman II, MD [Staff Physician, Gastroenterology] - Enter time for follow up Problems: Sigmoid diverticulitis David Gonzalez MD [Staff Physician, Urology] - Enter time for follow up Problems: Hematuria Kary Davis, [employer] [Primary Care Provider, Medical] - Enter time for follow up Prescriptions/Medication Reconciliation: New hydrocodone-acetaminophen 5-325 mg Tablet 1 tab PO Q4HP PRN (Reason: Moderate Pain (4-6)) Qty: 9 0RF amoxicillin-pot clavulanate 875-125 mg tablet 1 tab PO BID Qty: 26 0RF Problem Reconciliation Problems Reviewed?: Yes Patient Discharge Instructions ACTIVITY: Continue current activity DIET: advance to your usual diet Patient Instructions: Diverticulitis, Sepsis, Stop Light Infection Print Language: [place]ian Providers Primary Care Provider: Kary Davis Admit Provider: David Reyna Attending Provider: David Reyna
--- NOTE | 2025-04-02 10:04 | SW/DCPLANNER ---
Phoned patient x2 and left message with name and a call back number. Tamy CASTRO Records Management Technician
== END 2025-03-31 13:27 | disposition home or self-care (01) ==
LOC: ER 15:32 → 2ND 18:02
PROVIDERS: Student in an Organized Health Care Education/Training Program; Admitting Provider Student in an Organized Health Care Education/Training Program; Emergency Provider Student in an Organized Health Care Education/Training Program; PCP Nurse Practitioner; Visit Provider Student in an Organized Health Care Education/Training Program
DX: K57.32 Diverticulitis of large intestine without perforation or abscess without bleeding (principal); R31.9 Hematuria, unspecified; F17.200 Nicotine dependence, unspecified, uncomplicated; Z88.0 Allergy status to penicillin
CPT/HCPCS: 36415; 74177; 80053; 81001; 81025; 83690; 83735; 85007; 85025; 85027; 86140; 96361; 96365; 96366; 96375; 96376; 99285; G0378; J1885; J2270; J2405; J2543; J7120; Q9967